=== PATIENT | female | born 1970 | race Caucasian/White ===

== ENCOUNTER 2020-12-24 18:37 | Emergency (ER) | payer BC ==
[2020-12-24] MEDS ORDERED: Sodium Chloride 0.9% 10 ML Syringe FLUSH PRN (19:12)
[2020-12-24] MEDS ORDERED: Sodium Chloride 0.9% 1,000 ML IV ONE (19:12)
[2020-12-24] MEDS ORDERED: HYDROmorphone 0.5 MG/0.5 ML Syringe IVPUSH ONE (19:12)
[2020-12-24] MEDS ORDERED: Ondansetron 4 MG/2 ML SDV IVPUSH ONE (19:12)
--- NOTE | 2020-12-24 20:00 | EDM.PDOC ---
ED HPI GENERAL MEDICAL PROBLEM - General Chief Complaint: Abdominal Pain Stated Complaint: STOMACH PAIN Time Seen by Provider: 12/24/20 18:45 Source of Information: Reports: Patient History Limitations: Reports: No Limitations - History of Present Illness INITIAL COMMENTS - FREE TEXT/NARRATIVE: 50-year-old female presents the emergency department with complaints of abdominal pain. Patient states that she has had abdominal pain to the middle of her abdomen for approximately 1 week however states she states that today it has worsened significantly and has become generalized. She denies fevers however she states she has been chilled off and on for the past couple of days. She has had diarrhea the past couple of days as well. She has been nauseated but has not vomited. She denies any urinary symptoms. She denies any headache cough sore throat or shortness of breath or any other flulike symptoms. She states she is otherwise healthy. Middle Abdomen Pain Score (Numeric/FACES): 7 - Related Data Allergies Allergy/AdvReac Type Severity Reaction Status Date / Time metal Allergy Severe Cannot Uncoded 12/24/20 18:48 Remember Home Meds: Home Meds . 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 ED EXAM, GI/ABD - Physical Exam Exam: See Below Exam Limited By: No Limitations General Appearance: Alert, WD/WN, No Apparent Distress Ears: Normal External Exam, Hearing Grossly Normal Nose: Normal Inspection Throat/Mouth: Normal Inspection, Normal Lips, Normal Voice, No Airway Compromise Head: Atraumatic Neck: Normal Inspection, Supple Respiratory/Chest: No Respiratory Distress, Lungs Clear, Normal Breath Sounds, No Accessory Muscle Use, Chest Non-Tender Cardiovascular: Normal Peripheral Pulses, Regular Rate, Rhythm, No Edema, No Murmur GI/Abdominal Exam: Normal Bowel Sounds, Soft, No Distention, Tender (In all 4 quadrants) (Female) Exam: Deferred Rectal (Female) Exam: Deferred Back Exam: Normal Inspection Extremities: Normal Inspection, Normal Range of Motion, Non-Tender, No Pedal Edema, Normal Capillary Refill Neurological: Alert, Oriented, Normal Cognition Psychiatric: Normal Affect, Normal Mood Skin Exam: Warm, Dry, Intact, Normal Color, No Rash Lymphatic: No Adenopathy Course - Vital Signs Text/Narrative:: Upon exam patient states generalized abdominal discomfort rated 6 out of 10. She does have tenderness noted to all 4 quadrants. Ordered labs to include a CBC, CMP, magnesium, C-reactive protein, urinalysis with micro and culture if indicated. We will also obtain a CT abdomen and pelvis with IV and p.o. contrast. Last Recorded V/S: Last Vital Signs Temp 98 F 12/24/20 18:42 Pulse 110 H 12/24/20 18:42 Resp 16 12/24/20 18:42 BP 134/97 H 12/24/20 18:42 Pulse Ox 98 12/24/20 18:42 - Orders/Labs/Meds Orders: Active Orders 24 hr Category Date Time Status Abdomen Pelvis w Cont [CT] Stat Exams 12/24/20 19:41 Taken Sodium Chloride 0.9% [Normal Saline] 100 ml Med 12/24/20 21:15 Active IV ASDIRECTED Sodium Chloride 0.9% [Saline Flush] Med 12/24/20 19:12 Active 10 ml FLUSH ASDIRECTED PRN Sodium Chloride 0.9% [Saline Flush] Med 12/24/20 21:15 Active 10 ml FLUSH BOLUS Saline Lock Insert [OM.PC] Stat Oth 12/24/20 19:12 Ordered Medication Orders Sodium Chloride (Normal Saline) 100 mls @ 60 drops/sec IV ASDIRECTED GINO Last Admin: 12/24/20 21:04 Dose: 60 drops/sec Documented by: WALEIGTONI Sodium Chloride (Sodium Chloride 0.9% 10 Ml Syringe) 10 ml FLUSH ASDIRECTED PRN PRN Reason: Keep Vein Open Last Admin: 12/24/20 19:24 Dose: 10 ml Documented by: ALFA Sodium Chloride (Sodium Chloride 0.9% 10 Ml Syringe) 10 ml FLUSH BOLUS GINO Last Admin: 12/24/20 21:04 Dose: 10 ml Documented by: ONEIGIN Labs: Laboratory Tests 12/24/20 12/24/20 12/24/20 Range/Units 18:57 19:28 19:28 WBC 8.41 (3.98-10.04) K/mm3 RBC 4.86 (3.98-5.22) M/mm3 Hgb 11.9 (11.2-15.7) gm/dl Hct 37.0 (34.1-44.9) % MCV 76.1 L (79.4-94.8) fl MCH 24.5 L (25.6-32.2) pg MCHC 32.2 (32.2-35.5) g/dl RDW Std Deviation 45.8 (36.4-46.3) fL Plt Count 349 (182-369) K/mm3 MPV 9.2 L (9.4-12.3) fl Neut % (Auto) 69.7 (34.0-71.1) % Lymph % (Auto) 21.5 (19.3-51.7) % [place] % (Auto) 7.5 (4.7-12.5) % Eos % (Auto) 0.8 (0.7-5.8) Baso % (Auto) 0.4 (0.1-1.2) % Neut # (Auto) 5.86 (1.56-6.13) K/mm3 Lymph # (Auto) 1.81 (1.18-3.74) K/mm3 [place] # (Auto) 0.63 H (0.24-0.36) K/mm3 Eos # (Auto) 0.07 (0.04-0.36) K/mm3 Baso # (Auto) 0.03 (0.01-0.08) K/mm3 Sodium 139 (136-145) mEq/L Potassium 3.9 (3.5-5.1) mEq/L Chloride 103 (98-107) mEq/L Carbon Dioxide 24 (21-32) mEq/L Anion Gap 15.9 H (5-15) BUN 12 (7-18) mg/dL Creatinine 1.0 (0.55-1.02) mg/dL Est Cr Clr Drug Dosing 58.76 mL/min Estimated GFR (MDRD) 59 (>60) mL/min BUN/Creatinine Ratio 12.0 L (14-18) Glucose 149 H (70-99) mg/dL POC Glucose 135 H (70-99) mg/dL Calcium 9.0 (8.5-10.1) mg/dL Magnesium 1.6 L (1.8-2.4) mg/dL Total Bilirubin 0.3 (0.2-1.0) mg/dL GGT (5-55) U/L AST 22 (15-37) U/L ALT 31 (14-59) U/L Alkaline Phosphatase 66 (46-116) U/L C-Reactive Protein 0.9 (<1.0) mg/dL Total Protein 8.1 (6.4-8.2) g/dl Albumin 3.6 (3.4-5.0) g/dl Globulin 4.5 gm/dL Albumin/Globulin Ratio 0.8 L (1-2) Lipase (73-393) U/L Urine Color (Yellow) Urine Appearance (Clear) Urine pH (5.0-8.0) Ur Specific [place] (1.005-1.030) Urine Protein (Negative) Urine Glucose (UA) (Negative) Urine Ketones (Negative) Urine Occult Blood (Negative) Urine Nitrite (Negative) Urine Bilirubin (Negative) Urine Urobilinogen (0.2-1.0) Ur Leukocyte Esterase (Negative) 12/24/20 12/24/20 Range/Units 19:28 21:21 WBC (3.98-10.04) K/mm3 RBC (3.98-5.22) M/mm3 Hgb (11.2-15.7) gm/dl Hct (34.1-44.9) % MCV (79.4-94.8) fl MCH (25.6-32.2) pg MCHC (32.2-35.5) g/dl RDW Std Deviation (36.4-46.3) fL Plt Count (182-369) K/mm3 MPV (9.4-12.3) fl Neut % (Auto) (34.0-71.1) % Lymph % (Auto) (19.3-51.7) % [place] % (Auto) (4.7-12.5) % Eos % (Auto) (0.7-5.8) Baso % (Auto) (0.1-1.2) % Neut # (Auto) (1.56-6.13) K/mm3 Lymph # (Auto) (1.18-3.74) K/mm3 [place] # (Auto) (0.24-0.36) K/mm3 Eos # (Auto) (0.04-0.36) K/mm3 Baso # (Auto) (0.01-0.08) K/mm3 Sodium (136-145) mEq/L Potassium (3.5-5.1) mEq/L Chloride (98-107) mEq/L Carbon Dioxide (21-32) mEq/L Anion Gap (5-15) BUN (7-18) mg/dL Creatinine (0.55-1.02) mg/dL Est Cr Clr Drug Dosing mL/min Estimated GFR (MDRD) (>60) mL/min BUN/Creatinine Ratio (14-18) Glucose (70-99) mg/dL POC Glucose (70-99) mg/dL Calcium (8.5-10.1) mg/dL Magnesium (1.8-2.4) mg/dL Total Bilirubin (0.2-1.0) mg/dL GGT 22 (5-55) U/L AST (15-37) U/L ALT (14-59) U/L Alkaline Phosphatase (46-116) U/L C-Reactive Protein (<1.0) mg/dL Total Protein (6.4-8.2) g/dl Albumin (3.4-5.0) g/dl Globulin gm/dL Albumin/Globulin Ratio (1-2) Lipase 98 (73-393) U/L Urine Color Yellow (Yellow) Urine Appearance Slt cloudy H (Clear) Urine pH 6.0 (5.0-8.0) Ur Specific [place] 1.015 (1.005-1.030) Urine Protein Negative (Negative) Urine Glucose (UA) Negative (Negative) Urine Ketones Negative (Negative) Urine Occult Blood Negative (Negative) Urine Nitrite Negative (Negative) Urine Bilirubin Negative (Negative) Urine Urobilinogen 0.2 (0.2-1.0) Ur Leukocyte Esterase Negative (Negative) Meds: Medications Generic Name Dose Route Start Last Admin Trade Name Freq PRN Reason Stop Dose Admin Sodium Chloride 100 mls @ 60 drops/sec 12/24/20 21:15 12/24/20 21:04 Normal Saline IV 60 drops/sec ASDIRECTED GINO Administration Sodium Chloride 10 ml 12/24/20 19:12 12/24/20 19:24 Sodium Chloride 0.9% 10 Ml Syringe FLUSH 10 ml ASDIRECTED PRN Administration Keep Vein Open Sodium Chloride 10 ml 12/24/20 21:15 12/24/20 21:04 Sodium Chloride 0.9% 10 Ml Syringe FLUSH 10 ml BOLUS GINO Administration Discontinued Medications Generic Name Dose Route Start Last Admin Trade Name Mukund PRN Reason Stop Dose Admin Hydromorphone HCl 0.5 mg 12/24/20 19:12 12/24/20 19:23 Hydromorphone 0.5 Mg/0.5 Ml Syringe IVPUSH 12/24/20 19:13 0.5 mg ONETIME ONE Administration Sodium Chloride 1,000 mls @ 999 mls/hr 12/24/20 19:12 12/24/20 19:23 Normal Saline IV 12/24/20 20:12 999 mls/hr ONETIME ONE Administration Iopamidol 100 ml 12/24/20 21:03 12/24/20 21:04 Iopamidol 612 Mg/Ml 100 Ml Bottle IVPUSH 12/24/20 21:04 100 ml ONETIME ONE Administration Ondansetron HCl 4 mg 12/24/20 19:12 12/24/20 19:23 Ondansetron 4 Mg/2 Ml Sdv IVPUSH 12/24/20 19:13 4 mg ONETIME ONE Administration - Re-Assessments/Exams Free Text/Narrative Re-Assessment/Exam: 12/24/20 21:26 Hematology reveals a WBC of 8.41, hemoglobin 11.9, hematocrit 37.0, platelet count 349 Chemistry reveals a sodium of 139, potassium 3.9, anion gap 15.9, BUN 12, creatinine 1.0, glucose 149, magnesium 1.6, total bilirubin 0.3, GGT 22, AST 22, ALT 31, alk phos 66, C-reactive protein 0.9, lipase 98 12/24/20 21:29 vRad radiologist impression: Moderate free fluid in the pelvis, predominating on the right. Consider ruptured ovarian cyst. No evidence of appendicitis. The stomach and small bowel filled with oral contrast appear normal. The on opacified distal small bowel also appears normal Departure - Departure Time of Disposition: 21:46 Disposition: Home, Self-Care 01 Condition: Good Clinical Impression: Ruptured ovarian cyst - Discharge Information Instructions: Pain Medicine Instructions, [id number] Referrals: Gerber Alcazar MD [Primary Care Provider] - Forms: ED Department Discharge Additional Instructions: You were seen in the emergency department with abdominal pain. Labs were completed which were essentially unremarkable. There is no signs of infection anywhere. CT scan was completed which did show free fluid in the pelvis predominantly on the right which is likely due to an ovarian cyst. You do have another cyst noted on the right which is 2 cm. Go home and rest and drink plenty of fluids. May take Tylenol every 4 hours for the discomfort. Recommend that you follow-up with your CARRIER LOADER, Dr. Blancas later this week for reevaluation. Sepsis Event Note (ED) - Evaluation Sepsis Screening Result: No Definite Risk - Focused Exam Vital Signs: Vital Signs Temp Pulse Resp BP Pulse Ox 12/24/20 18:42 98 F 110 H 16 134/97 H 98 - My Orders Last 24 Hours: My Active Orders 12/24/20 19:12 Sodium Chloride 0.9% [Saline Flush] 10 ml FLUSH ASDIRECTED PRN Saline Lock Insert [OM.PC] Stat 12/24/20 19:41 Abdomen Pelvis w Cont [CT] Stat 12/24/20 21:15 Sodium Chloride 0.9% [Normal Saline] 100 ml IV ASDIRECTED Sodium Chloride 0.9% [Saline Flush] 10 ml FLUSH BOLUS - Assessment/Plan Last 24 Hours: My Active Orders 12/24/20 19:12 Sodium Chloride 0.9% [Saline Flush] 10 ml FLUSH ASDIRECTED PRN Saline Lock Insert [OM.PC] Stat 12/24/20 19:41 Abdomen Pelvis w Cont [CT] Stat 12/24/20 21:15 Sodium Chloride 0.9% [Normal Saline] 100 ml IV ASDIRECTED Sodium Chloride 0.9% [Saline Flush] 10 ml FLUSH BOLUS
[2020-12-24] MEDS ORDERED: Iopamidol 612 MG/ML 100 ML Bottle IVPUSH ONE (21:03)
[2020-12-24] MEDS ORDERED: Sodium Chloride 0.9% 100 ML IV SCH (21:15)
[2020-12-24] MEDS ORDERED: Sodium Chloride 0.9% 10 ML Syringe FLUSH SCH (21:15)
[2020-12-24 22:18] VITALS: BP 118/78; PULSE 70
--- NOTE | 2020-12-25 08:28 | CT ---
CT abdomen and pelvis Technique: Multiple axial sections were obtained from above the dome of the diaphragm inferiorly through the pubic symphysis. Intravenous and oral contrast were utilized. Reconstructed coronal and sagittal images were obtained. Delayed images were also obtained through the abdomen and pelvis. Comparison: No prior abdominal imaging is available. Findings: Free fluid is seen within the pelvis. There is a cyst being seen within the right side of the pelvis measuring 2.1 cm. Free fluid is most likely due to a nonvisualized ruptured adnexal cyst. Visualized lung bases show nothing acute. Liver contains no focal parenchymal abnormality. Surgical clips are seen from prior cholecystectomy. Spleen size is normal. Adrenal glands show no nodule. Pancreas appears within normal limits. Kidneys show symmetric contrast enhancement with no hydronephrosis or mass being seen. Abdominal aorta shows no aneurysm. No retroperitoneal adenopathy or mesenteric abnormalities are seen. Appendix is seen which is normal. No pelvic mass or adenopathy is seen. Delayed images show contrast excretion into both ureters. Contrast is noted within the bladder. Bone window settings were reviewed which show no acute osseous abnormality. Impression: 1. Free fluid within the pelvis with 2.1 cm cyst within the right pelvis. Free fluid is most likely due to ruptured adnexal cyst. 2. Prior cholecystectomy. 3. Nothing acute is otherwise seen on CT study of the abdomen and pelvis. Diagnostic code #3 I agree with preliminary report from [facility], finalized on 12/24/20, 10:19 PM CDT, code 1
== END 2020-12-24 22:00 | disposition home or self-care (01) ==
LOC: JD.ED 18:37
DX: N83.201 Unspecified ovarian cyst, right side (principal); I10 Essential (primary) hypertension; E11.9 Type 2 diabetes mellitus without complications; Z91.048 Other nonmedicinal substance allergy status
CPT/HCPCS: 36415; 74177; 80053; 81003; 82947; 82977; 83690; 83735; 85025; 86140; 96374; 96375; 99284; J1170; J2405; J7030; Q9967

== ENCOUNTER 2021-05-23 08:09 | Day surgery (SDC) | payer BC ==
[~2021-05-23 08:09] MED LIST: Bupivacaine 0.5% 10 ML SDV ONE; HYDROmorphone 0.5 MG/0.5 ML Syringe IVPUSH PRN; Lactated Ringers 1,000 ML IV SCH; Lidocaine 1% with EPINEPHrine 1:100,000 20 ML MDV ONE; Lidocaine 1%/Sod Bicarbonate in NS 8.4% 1 ML Syringe IDERM PRN; Ondansetron 4 MG/2 ML SDV IVPUSH PRN; Scopolamine 1.5 MG Transdermal Patch TRDERM PRN; Sodium Chloride 0.9% 10 ML Syringe FLUSH SCH; Sodium Chloride 0.9% 50 ML SDV ONE; fentaNYL 100 MCG/2 ML SDV IVPUSH PRN
--- NOTE | 2021-05-23 08:22 | PCM.PREANE ---
Preanesthetic Assessment - Procedure Proposed Procedure: LAVH with BS - Anesthesia/Transfusion/Family Hx Anesthesia History: Prior Anesthesia Without Reaction Family History of Anesthesia Reaction: No Transfusion History: No Prior Transfusion(s) Intubation History: Unknown - Review of Systems General: No Symptoms Pulmonary: No Symptoms Cardiovascular: No Symptoms Gastrointestinal: No Symptoms Neurological: Headache (migraines , 2013 - Dx with cva, 2 YEARS AFTER DX WITH fACTOR viii ), Difficulty Walking Other: Reports: Easy Bleeding, Diabetes (ON METFORMIN AND INJECTION, BS 162 ) - Physical Assessment NPO Status Date: 05/22/21 NPO Status Time: 22:00 Vital Signs: 138/83 97 hr 98% Height: 1.63 m ASA Class: 3 Mental Status: Alert & Oriented x3 Airway Class: Mallampati = 1 Dentition: Reports: Normal Dentition Thyro-Mental Finger Breadths: 3 Mouth Opening Finger Breadths: 5 ROM/Head Extension: Full Lungs: Clear to Auscultation, Normal Respiratory Effort Cardiovascular: Regular Rhythm, Tachycardia - Lab Values: Laboratory Last Values POC Glucose 162 mg/dL (70-99) H 05/23/21 08:06 - Allergies Allergies/Adverse Reactions: Allergies Allergy/AdvReac Type Severity Reaction Status Date / Time [id number] Reductase Allergy Leg Cramps Verified 05/23/21 08:10 Inhibitor metal Allergy Unknown Itching Uncoded 05/23/21 08:10 - Blood Blood Available: No - Anesthesia Plan Pre-Op Medication Ordered: Other (SCOPALAMINE PATCH ) - Acknowledgements Anesthesia Type Planned: General Anesthesia Pt an Appropriate Candidate for the Planned Anesthesia: Yes Alternatives and Risks of Anesthesia Discussed w Pt/Guardian: Yes Pt/Guardian Understands and Agrees with Anesthesia Plan: Yes PreAnesthesia Questionnaire HEENT History: Reports: Allergic Rhinitis Cardiovascular History: Reports: Blood Clots/VTE/DVT, High Cholesterol, Hypertension Gastrointestinal History: Reports: GERD Other Genitourinary History: pelvic pain, exploratory laparoscopy x3, lap 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 factor VIII - Past Surgical History HEENT Surgical History: Reports: None Cardiovascular Surgical History: Reports: None GI Surgical History: Reports: Cholecystectomy Other Female Surgeries/Procedures: endometrosis, SAB and Endocrine Surgical History: Reports: None - SUBSTANCE USE Tobacco Use Status *Q: Never Tobacco User Tobacco Use Within Last Twelve Months: No Second Hand Smoke Exposure: No Recreational Drug Use History: No - HOME MEDS Home Medications: Home Meds Acetaminophen/Codeine [Tylenol with Codeine No.3 300MG/30MG] 1 - 2 tab PO ASDIRECTED PRN 05/22/21 [History] Aspirin [Adult Low Dose Aspirin EC] 81 mg PO DAILY 05/22/21 [History] Cyclobenzaprine [Flexeril] 10 mg PO ASDIRECTED PRN 05/22/21 [History] Exenatide Microspheres [Bydureon] 2 mg SQ WEEKLY 05/22/21 [History] Fluticasone Furoate [Flonase Sensimist] 1 spray NASBOTH ASDIRECTED PRN 05/22/21 [History] LORazepam [Ativan] 0.5 - 1 mg PO ASDIRECTED PRN 05/22/21 [History] Levothyroxine Sodium [Synthroid] 125 mcg PO DAILY 05/22/21 [History] Losartan Potassium 25 mg PO DAILY 05/22/21 [History] Pantoprazole [ProTONIX] 40 mg PO DAILY 05/22/21 [History] Rizatriptan Benzoate [Rizatriptan] 10 mg PO ASDIRECTED PRN 05/22/21 [History] Sertraline HCl 100 mg PO DAILY 05/22/21 [History] metFORMIN [Glucophage] 1,000 mg PO BID 05/22/21 [History] - CURRENT (IN HOUSE) MEDS Current Meds: Current Medications Fentanyl (Fentanyl 100 Mcg/2 Ml Sdv) 50 mcg IVPUSH Q5M PRN PRN Reason: Pain Stop: 05/23/21 23:00 Hydromorphone HCl (Hydromorphone 0.5 Mg/0.5 Ml Syringe) 0.5 mg IVPUSH Q10M PRN PRN Reason: Pain (severe 7-10) Stop: 05/23/21 23:00 Lactated Ringer's (Ringers, Lactated) 1,000 mls @ 125 mls/hr IV ASDIRECTED GINO Stop: 05/23/21 23:00 Last Admin: 05/23/21 07:26 Dose: 125 mls/hr Documented by: Lidocaine/Sodium Bicarbonate (Lidocaine 1%/Sod Bicarbonate In Ns 8.4% 1 Ml Syringe) 0.25 ml IDERM ONETIME PRN PRN Reason: Prior to IV Start Stop: 05/23/21 18:00 Ondansetron HCl (Ondansetron 4 Mg/2 Ml Sdv) 4 mg IVPUSH ONETIME PRN PRN Reason: Nausea/Vomiting Stop: 05/23/21 23:00 Scopolamine (Scopolamine 1.5 Mg Transdermal Patch) 1.5 mg TRDERM Q72H PRN PRN Reason: PROPHYLATIC NAUSEA Stop: 05/23/21 23:00 Last Admin: 05/23/21 08:00 Dose: 1.5 mg Documented by: Sodium Chloride (Sodium Chloride 0.9% 10 Ml Syringe) 10 ml FLUSH 0900,2100 GINO Stop: 05/23/21 18:00 Discontinued Medications Bupivacaine HCl (Bupivacaine 0.5% 10 Ml Sdv) Confirm Administered Dose 10 ml .ROUTE .STK-MED ONE Stop: 05/23/21 08:04 Lidocaine/Epinephrine (Lidocaine 1% With Epinephrine 1:100,000 20 Ml Mdv) Confirm Administered Dose 20 ml .ROUTE .STK-MED ONE Stop: 05/23/21 07:44 Sodium Chloride (Sodium Chloride 0.9% 50 Ml Sdv) Confirm Administered Dose 50 ml .ROUTE .STK-MED ONE Stop: 05/23/21 07:44
[2021-05-23] MEDS ORDERED: Propofol 200 MG/20 ML SDV ONE (09:11)
[2021-05-23] MEDS ORDERED: fentaNYL 250 MCG/5 ML SDV ONE (09:12)
[2021-05-23] MEDS ORDERED: Lidocaine 1% 4 ML ONE (09:13)
[2021-05-23] MEDS ORDERED: Rocuronium 50 MG/5 ML Vial ONE (09:15)
[2021-05-23] MEDS ORDERED: Ondansetron 4 MG/2 ML SDV ONE ×2 (09:18→11:47)
[2021-05-23] MEDS ORDERED: Dexamethasone 4 MG/ML SDV ONE (09:18)
[2021-05-23] MEDS ORDERED: Succinylcholine/Sod PF 100 MG/5 ML SYRINGE IV ONE (09:58)
[2021-05-23] MEDS ORDERED: ceFAZolin 1 GM Vial ONE (10:07)
[2021-05-23] MEDS ORDERED: fentaNYL 100 MCG/2 ML SDV IVPUSH PRN (10:56)
[2021-05-23] MEDS ORDERED: HYDROmorphone 0.5 MG/0.5 ML Syringe IVPUSH PRN (10:56)
[2021-05-23] MEDS ORDERED: Lactated Ringers 1,000 ML ONE (11:47)
[2021-05-23] MEDS ORDERED: Ketorolac 30 MG/ML SDV ONE (11:47)
[2021-05-23] MEDS ORDERED: ePHEDrine 50 MG/ML SDV ONE (11:47)
--- NOTE | 2021-05-23 12:29 | PCM.POSTAN ---
POST ANESTHESIA ASSESSMENT - MENTAL STATUS Mental Status: Somnolent - VITAL SIGNS Vital Signs: Last Vital Signs Temp 97.3 F 05/23/21 12:07 Pulse 113 H 05/23/21 12:07 Resp 20 05/23/21 12:07 BP 113/81 05/23/21 12:07 Pulse Ox 92 L 05/23/21 12:07 - RESPIRATORY Respiratory Status: Respiratory Rate WNL, Airway Patent, O2 Saturation Stable, Supplemental Oxygen - CARDIOVASCULAR CV Status: Blood Pressure Stable, Elevated Pulse Rate - GASTROINTESTINAL GI Status: No Symptoms - PAIN Pain Score: 0 - POST OP HYDRATION Hydration Status: Adequate & Stable
[2021-05-23] MEDS ORDERED: oxyCODONE 5 MG Tab PO PRN (12:37)
[2021-05-23] MEDS ORDERED: Ondansetron 4 MG/2 ML SDV IVPUSH PRN (12:37)
--- NOTE | 2021-05-23 12:44 | PCM.OPNOTE ---
- General Post-Op/Procedure Note Date of Surgery/Procedure: 05/23/21 Operative Procedure(s): Laparoscopically assisted total vaginal hysterectomy with bilateral salpingectomy Findings: Uterus is found to be scarred secondary to endometriosis. Ovaries bilaterally appeared uninvolved and normal reproductive in appearance. Pelvis was otherwise unremarkable anteriorly and posteriorly. On vaginal exam the relaxation of the uterus/cervix was minimal. The ligamentous support was somewhat rigid and one gets the impression there may be scarring secondary to her chronic endometriosis. Pre Op Diagnosis: 1 pelvic pain. 2. Endometriosis Post-Op Diagnosis: Same Anesthesia Technique: General ET Tube Other Anesthesia Type: Lidocaine 1/4% with [id number] victoriano local, Marcaine 0.5% - 10 mL local Primary Surgeon: Ken Blancas Secondary Surgeon: Dalton Pedroza Anesthesia Provider: Speedy Pozo Reason Measurement Technician Was Necessary: Retraction, assistance, patient safety, quality of care. Pathology: Uterus, bilateral fallopian tubes in specimen container Fluid Replacement, Intraop: 1,900 Output, Urine Amount: 120 EBL in mLs: 500 Drain/Tube Comments:: Indwelling bladder catheter during surgery only. Removed at the end of the case. Complications: None Condition: Good Free Text/Narrative:: Surgery duration: 1 hour 20 minutes The patient was taken to the operating room placed in supine position on the operating table. She received 2 g of Ancef preoperatively for infection prophylaxis. She had signed consent previously. After adequate anesthesia patient was placed in a dorsal lithotomy position. It should be noted she had sequential compression stockings in place for DVT prophylaxis.The patient was placed in supine position and 3 laparoscopic port sites were developed. Marcaine 0.5% approximately 3-5 mL was injected at each site. Verres needle was placed and pneumoperitoneum was achieved with 3 L of CO2. Infraumbilical, and 2 lateral port sites were developed. Under laparoscopic guidance the upper portion of the hysterectomy was performed. The right infundibulopelvic ligament was elevated and crossclamped using the endoseal computerized cautery device. The round ligament was taken down to the broad ligament. At this time attention was turned to the left side and the left infundibulopelvic ligament and the triple ligament were then taken down in a similar fashion. Broad ligament was taken down to the area of the uterine vasculature. Uterine vasculature was developed in the usual fashion using the cautery system. Both uterine arteries were identified and developed. Vaginal approach was then undertaken. The patient was placed in the dorsal lithotomy position and a weighted speculum was placed in the vagina. The cervix was injected with lidocaine quarter percent with epinephrine 20 mL total. A full circumference incision was made through the epithelium around the cervix. Posterior cul-de-sac was entered without problems. Generalized lack of relaxation was noted and was significant. The left uterosacral ligament and then the right uterosacral were taken down using the Enseal vessel closure system. The cardinal ligament and what remained of the uterine vascular vessels and cervical branches of the vessels were managed with the Enseal vessel closure system on each side. Anterior cul-de-sac was then entered and the remaining portion of broad ligament on the right side and a small portion of broad ligament remaining on the left side were then developed in the usual fashion. Uterus was then removed. At this point the uterus was completely removed and sent as specimen. The vaginal cuff was then run with a locked running suture of 0 Monocryl from the 2 o'clock position to the 10 o'clock position. The vagina was closed with a running locked suture of 0 Monocryl. Hemostasis was confirmed this time and no bleeding was noted. Laparoscopy was then performed to ensure hemostasis. Pneumoperitoneum was reestablished and the laparoscope was placed. The pelvis was found to be hemostatically intact. There was no evidence of any bowel adhesion to the vaginal cuff area noted. The sleeves were removed under direct visualization and the upper sleeve was removed after reversal of the pneumoperitoneum. Each of these sites were closed with a single interrupted suture of 3-0 Monocryl. They were further approximated with Dermabond skin glue. At this point the patient was awakened from general endotracheal anesthesia. The Valdez catheter had been removed by this time. She is discharged from the operating room in good condition.
--- NOTE | 2021-05-23 14:53 | PCM48HPAN ---
Post Anesthesia Note - EVALUATION WITHIN 48HRS OF ANESTHETIC Vital Signs in Normal Range: Yes Patient Participated in Evaluation: Yes Respiratory Function Stable: Yes Airway Patent: Yes Cardiovascular Function Stable: Yes Hydration Status Stable: Yes Pain Control Satisfactory: Yes Nausea and Vomiting Control Satisfactory: Yes Mental Status Recovered: Yes Vital Signs: Last Vital Signs Temp 97.4 F 05/23/21 12:35 Pulse 115 H 05/23/21 12:35 Resp 22 H 05/23/21 12:35 BP 108/66 05/23/21 12:35 Pulse Ox 97 05/23/21 12:35 - COMMENTS/OBSERVATIONS Free Text/Narrative:: Preparing for home discharge
[2021-05-23 15:32] VITALS: BP 109/68; PULSE 103
[2021-05-23] MEDS ORDERED: Ketorolac 30 MG/ML SDV IVPUSH SCH (18:00)
== END 2021-05-23 15:30 | disposition home or self-care (01) ==
LOC: JD.SDS 08:09
PROVIDERS: ATTEND Obstetrics & Gynecology
DX: D25.1 Intramural leiomyoma of uterus (principal); D25.2 Subserosal leiomyoma of uterus; N83.8 Other noninflammatory disorders of ovary, fallopian tube and broad ligament; N87.9 Dysplasia of cervix uteri, unspecified; N80.9 Endometriosis, unspecified; D64.9 Anemia, unspecified; F41.9 Anxiety disorder, unspecified; E11.9 Type 2 diabetes mellitus without complications; I10 Essential (primary) hypertension; K21.9 Gastro-esophageal reflux disease without esophagitis; E03.9 Hypothyroidism, unspecified; E78.00 Pure hypercholesterolemia, unspecified; G43.909 Migraine, unspecified, not intractable, without status migrainosus; Z88.8 Allergy status to other drugs, medicaments and biological substances; Z79.84 Long term (current) use of oral hypoglycemic drugs; Z79.899 Other long term (current) drug therapy; Z79.82 Long term (current) use of aspirin; Z98.890 Other specified postprocedural states; Z90.49 Acquired absence of other specified parts of digestive tract
CPT/HCPCS: 36415; 58552; 82947; 86850; 86900; 86901; A9270; J0330; J0690; J1100; J1885; J2370; J2405; J2704; J2710; J3010; J3490; J7120; 00944